=== PATIENT | male | born 2005 | race Caucasian/White ===

== ENCOUNTER 2024-02-10 01:50 | Emergency (ER) | payer SELFPAY ==
[2024-02-10 01:50] VITALS: BMI 20.8
[2024-02-10 01:58] VITALS: BP 126/79
--- NOTE | 2024-02-10 02:05 | ED.GENMED ---
History of Present Illness
General
Chief Complaint: Alcohol Problem
Source: patient and police
Exam Limitations: none
Time Seen by Provider: 02/10/24 01:52
History of Present Illness
History of Present Illness:
This is a 18 year old male that comes in with c/o being Tazed. Patient states that he was sitting in the [facility] parking lot eating a hamburger. States that there was a police car in the parking lot and when he pulled out they pulled out. States that
they pulled him over and he was being cooperative. States that he was pulled out of the car and he hit his head. States that they tased him and he didn't know why. States that he he had LOC. Police states that he was pulled over and he was fighting
in the car so he was asked to get out of the car as they smelled alcohol on his breath. States that he was impaired with testing and he was refusing arrest. States that he was fighting against them and and he was taken to the ground but office Jolly
was underneath of him and he did not hit his head. States that there was no LOC. Patient states that he is nauseated, has a headache and felt dizzy. Denies any fever, chills, chest pain, SOB, abd pain, vomiting, diarrhea, urinary burning.
Past History
Past History
ED Past Medical History: GERD; Negative Asthma, HTN, Hypercholesterolemia or NIDDM
ED Past Surgical History: Orthopedic (ACL and Meniscus repair on the right)
Social History
Tobacco: Vaping
Alcohol: Occasional
Personal: Single
Living: with family
Review of Systems
Review of Systems
All Other Systems: ROS reviewed and negative except as documented in HPI and ROS
Constitutional: Reports no symptoms; Denies fever or chills
EENT: Reports no symptoms
Respiratory: Reports no symptoms; Denies cough or trouble breathing
Cardiac: Reports no symptoms; Denies chest pain
ABD/GI: Reports nausea; Denies abdominal pain, vomiting or diarrhea
: Reports no symptoms; Denies dysuria, frequency or urgency
Musculoskeletal: Reports no symptoms
Skin: Reports no symptoms
Neurological: Reports dizzy and headache
Psychiatric: Reports no symptoms
Phy Exam
General Physical Exam
General Presentation: well appearing and no apparent distress
General age: appears stated age
General Skin: warm and dry
General Habitus: normal
General Mental: alert
General Hydration: appears well hydrated
ENT Exam
ENT Exam: TM's normal, pharynx normal and neck supple
Eye Exam
Eye Exam: EOMI
Cardiovascular Exam
Cardiovascular Exam: regular rate/rhythm, no edema, no murmur and normal peripheral pulses
Pulmonary Exam
Pulmonary Exam: lungs clear, no respiratory distress, no rales, chest non tender, no crackles, no rhonchi, no wheezing and no cough
Gastrointestinal Exam
Gastrointestinal Exam: normal bowel sounds, non tender, soft, no organomegaly, no pulsatile mass and non distended
Musculoskeletal Exam
Musculoskeletal Exam: full ROM and no edema
Skin Exam
Skin Exam: normal color, warm/dry, no petechia and other (Scratch mcclain on the right sided of the back)
Psychiatric Exam
Psychiatric Exam: normal mood/affect
Scores
Withdrawal Assessment of Alcohol
Withdrawal Assessment Completed?: Not applicable
Course
Orders/Labs/Results
Orders:
Orders
02/10/24 02:03
CT Head W/o Iv Contrast Urgent
Comment:
Reason For Exam: altercation, hit head
02/10/24 02:04
Alcohol Urgent
Urine Drug Abuse Screen Urgent
Vital Signs
Initial and Last Documented VS:
Initial Vital Signs
Pulse Resp BP Pulse Ox
97 18 126/79 98
02/10/24 01:58 02/10/24 01:58 02/10/24 01:58 02/10/24 01:58
Last Documented Vital Signs
Temp Pulse Resp BP Pulse Ox
98.6 F 97 18 126/79 98
02/10/24 02:04 02/10/24 01:58 02/10/24 01:58 02/10/24 01:58 02/10/24 01:58
MDM/Problems Addressed
Differential Diagnosis Includes:
Alcohol use,
MDM/Problems Addressed:
This is a 18 year old male that is brought in by police after being tased. Patent was asked to get out of the car after the police smelled alcohol. Patient was fighting against the police and eventually he was taken to the ground. Patient states
that he hit his head and that he lost consciousness. Police state that Office [employer] fell on the ground first with the patient on top of him and that he did not loss consciousness.
will get CT of the head. Patient is refusing labs.
Back into see patient. patient was sleeping. Arouses easily and will discharged to the Police. Patient clear for incarceration.
Chronic conditions affecting care:
NA
Acute Exacerbation and/or Progression of Chronic Illness:
NA
*Radiology
Radiology exam reviewed: radiology read reviewed (CT head- night hawk-No acute intracranial hemorrhage. No calvarial fracture. )
*Pulse Oximetry
Patient hypoxic: no
*EKG
Interpreted by ED Provider?: NA
Rate: EKG- N/A
*Vp Project Interpretation
Rate: Vp Project- N/A
*Critical Care Note
Total Time (30-74mins, 75-104mins- exclusive of procedures): Not Applicable
ED Attending Note
-
Portions of this chart may have been created with voice recognition software.� Occasional wrong word or��sound alike� substitutions may have occurred due to the inherent limitations of voice recognition software.
Discharge Plan
Departure
Patient Disposition: Skilled Nursing
Date of Disposition: 02/10/24
Time of Disposition: 02:55
Patient with high blood pressure during this ER visit?: No
Condition: Good
Covid-19: Not Applicable
Discharge Problem:
Headache, Electric shock caused by Taser
Instructions: Headache, Adult ED
Referrals:
NONE,* [Family Provider] -
Activity Restrictions/Additional Instructions:
As discussed, you have refused any blood to be drawn. Your CT of the head is normal. You have been brought in by police. YOU ARE CLEARED FOR INCARCERATION. IF YOU HAVE ANY OTHER CONCERNS PLEASE RETURN TO THE EMERGENCY ROOM.
Interventions
Interventions:
*Risk Screen - Suicide Last Done: 02/10/24 01:51
*General Assessment Last Done: 02/10/24 01:51
*Neglect/Abuse Screening Last Done: 02/10/24 01:51
*ED COVID-19 Vaccine History Last Done: 02/10/24 01:59
Discharge Date and Time
Print Language: SLOVENIAN
== END 2024-02-10 03:06 ==
LOC: EMR 01:50
PROVIDERS: EMERGENCY PHYSICIAN Emergency Medicine
DX: R51.9 Headache, unspecified (principal); T75.4XXA Electrocution, initial encounter; Y35.831A Legal intervention involving a conducted energy device, law enforcement official injured, initial encounter; K21.9 Gastro-esophageal reflux disease without esophagitis; F17.290 Nicotine dependence, other tobacco product, uncomplicated
CPT/HCPCS: 99284; 70450